=== PATIENT | male | born 1980 | race Caucasian/White ===

== ENCOUNTER → 2017-01-23 | Outpatient (CLI) | payer OTHER ==
--- NOTE | 2017-01-23 18:44 | CONS ---
CONSULTATION DATE OF SERVICE: 01/23/2017 36-year-old gentleman who has been evaluated in Sleep Center for possible obstructive sleep apnea-hypopnea syndrome. HISTORY OF PRESENT ILLNESS /SLEEP WAKE EVALUATION: SLEEP SCHEDULE: His sleep schedule on weekdays from around 10:30 to 11:00 p.m. to 5 or 6:00 a.m. and on weekend from of midnight until 8:00 a.m. FALLING ASLEEP: No problems with falling asleep, although he has television in bedroom. DURING SLEEP: He sleeps with his with loud snoring, witnessed episodes of stopped breathing during sleep and awakening from sleep with nocturia and gasping for air. Patient wakes up from sleep 3 times. DURING THE DAY/SLEEP WAKE SCHEDULE: In the morning, he wakes up tired, worries about his sleep, has irritability. [place] Sleepiness Scale increased to 9. No history of hypnagogic hallucinations, sleep paralysis or cataplexy. PAST MEDICAL HISTORY: Positive for hypertension, acid reflux. PAST SURGICAL HISTORY: Tonsillectomy. MEDICATIONS: 1. Ranitidine. 2. Cozaar. FAMILY HISTORY: Hypertension, heart problems, sleep apnea, snoring. SOCIAL HISTORY: Positive history of smoking for 15 pack years, quit 10 years ago. Alcohol consumption occasional. REVIEW OF SYSTEMS: Multiple awakenings from sleep, tiredness, sleepiness during the day. PHYSICAL EXAM: A 36-year-old gentleman without distress BP 140/95, HR 82, RR 16, height 6 feet and 3 inches, weight 245.2, BMI 30.6. Neck is 17-1/2 inches in circumference. Temperature 97.3. Oxygen saturation on room air 95%. Oropharynx extremely low position of soft palate. Nose restriction of nasal breathing bilaterally. Neck Supple, no JVD. Thyroid is not palpable. LUNGS Clear to percussion and to auscultation. Good air exchange. No wheezing or rhonchi. HEART S1, S2 regular. No murmurs, gallops, or rubs. ABDOMEN Soft and nontender. Bowel sounds are present. No organomegaly appreciated. EXTREMITIES No clubbing or cyanosis. CARDIAC CARE NURSE Awake, alert, and oriented X3. Cranial nerves 2 to 7 intact. There is no fasciculation or atrophy. noted. No focal deficits observed. IMPRESSION: 1. Snoring witnessed episodes of stopped breathing during sleep, extremely low position of soft palate. Restriction of nasal breathing, obstructive sleep apnea- hypopnea syndrome. 2. Mild obesity BMI 30.6. 3. Acid reflux. 4. Hypertension. 5. Status post tonsillectomy. 6. Significant restriction of nasal breathing bilaterally, possible nasal septum deviation. PLAN: 1. Polysomnography for evaluation of patient's breathing during sleep. 2. CPAP/BiPAP titration if sleep study confirms obstructive sleep apnea-hypopnea syndrome. 3. Preferable position during sleep on the side. 4. No driving if patient feels any sleepiness. Patient is aware of civil and criminal liability for unsafe driving. 5. I will see patient for follow up visit to explain results of testing and following plan. Thank you very much for referring this patient for consultation. Sincerely, Aidan Ponce MD, PhD, FAASM Diplomat of [employer] Special[employer] Board of [employer] Medicine Knotter of [facility] [place] MMODL / AUGUSTINEN: [id number] /
== END | disposition home or self-care (01) ==
LOC: SLEEP 16:43
PROVIDERS: ATTEND Internal Medicine
DX: G47.33 Obstructive sleep apnea (adult) (pediatric) (principal); K21.9 Gastro-esophageal reflux disease without esophagitis; I10 Essential (primary) hypertension; E66.9 Obesity, unspecified; Z68.30 Body mass index [BMI] 30.0-30.9, adult; Z90.89 Acquired absence of other organs
CPT/HCPCS: 99211

== ENCOUNTER → 2017-06-06 | Outpatient (CLI) | payer OTHER ==
--- NOTE | 2017-06-06 16:23 | PN ---
PROGRESS NOTE DATE OF SURGERY: 06/06/2017 This patient is a 37-year-old gentleman who has has been followed in the sleep center for treatment of severe obstructive sleep apnea-hypopnea syndrome. Recently patient had a polysomnogram and CPAP titration, and I discussed results of the sleep studies with the patient in detail. He was started on treatment with auto PAP with a range of pressure between 5 and 20 cm of water. Patient demonstrated very good compliance, usage for more than 4 hours 28 out of 30 nights, average usage 6.2 hours. Average pressure in the machine is 18 cm of water. Leak is 24 L/minute, which is borderline. Apnea-hypopnea index for the last night is 8.0, for the last month in the range of 13. Central apneas only 2.0. The patient thinks that he does not snore with the machine. He feels better while he is using machine with relationship to his sleep and he feels better during the day. [place] Sleepiness Scale is 3. MEDICATIONS: 1. Ranitidine. 2. Cozaar. PHYSICAL EXAMINATION: Patient in no distress. BP 132/73, HR 88, RR 16, weight 239, temperature 97.5, oxygen saturation at room air 95%. HEENT: PERRLA, EOMI. Evaluation of oropharynx showed tongue protrudes midline; moderately to extremely low position of soft palate. NECK: Supple. No JVD. Thyroid is not palpable. LUNGS: Clear to percussion and to auscultation. Good air exchange. No wheezing or rhonchi. HEART: S1, S2 regular. No murmurs, gallops or rubs. ABDOMEN: Obese. Soft and nontender. Bowel sounds are present. No organomegaly appreciated. EXTREMITIES : No clubbing or cyanosis. LIQUEFACTION AND REGASIFICATION HELPER: Awake, alert, and oriented X3. Cranial nerves 2 to 7 intact. There is no fasciculation or atrophy. noted. No focal deficits observed. IMPRESSION: 1. Severe obstructive sleep apnea-hypopnea syndrome; apnea-hypopnea index 66.8 with oxygen desaturation to 65.6%, improved on CPAP with average pressure of 18 cm of water. Patient demonstrated great compliance with treatment, benefitting from treatment. 2. Hypertension. 3. Acid reflux. 4. Restriction of nasal breathing. PLAN: 1. Continue treatment with CPAP every night. 2. Watching and losing weight. 3. Sleep hygiene with regular time in bed for at least 8 hours. 4. No driving if feeling any sleepiness. 5. Follow-up visit in several months. If patient continues to have significant respiratory abnormalities, we may consider switching him to a BiPAP machine. Thank you very much for allowing me to participate in the management of your patient. Sincerely, Aidan Ponce MD, PhD, FAASM Diplomat of [employer] Board [employer] Specialties [employer] Board of Internal Medicine [employer] [facility] [place] MMODL / AUGUSTINEN: [id number] /
== END | disposition home or self-care (01) ==
LOC: SLEEP 14:12
PROVIDERS: ATTEND Internal Medicine
DX: G47.33 Obstructive sleep apnea (adult) (pediatric) (principal); I10 Essential (primary) hypertension; K21.9 Gastro-esophageal reflux disease without esophagitis; Z99.89 Dependence on other enabling machines and devices; Z79.899 Other long term (current) drug therapy

== ENCOUNTER → 2017-09-19 | Outpatient (CLI) | payer OTHER ==
--- NOTE | 2017-09-19 16:35 | PN ---
PROGRESS NOTE DATE OF SERVICE: 09/19/2017 This is a 37-year-old gentleman who has been followed in the sleep center for treatment of obstructive sleep apnea-hypopnea syndrome. Patient continues to use his CPAP equipment every night. He sleeps better with the machine and feels better during the day. [place] Sleepiness Scale today is 4. I checked the patient's CPAP unit. It is on automatic regimen. Range of the pressure is from 5 to 20. Most of the time pressure is 18.5. Significant leaks have been documented at about 89 L/minute. Apnea-hypopnea index is in the range of 14. Usage for the last 6 months is 154 out of 176 nights for more than 4 hours; average 5.7 hours, which is perfect compliance. MEDICATIONS: 1. Ranitidine. 2. Cozaar. PHYSICAL EXAMINATION: GENERAL A pleasant gentleman without distress. VITAL SIGNS: BP 115/74, HR 68, RR 16, height 6 feet 3 inches, weight 231, BMI 28.8. Patient lost 8 pounds since previous visit. Temperature 97.4, oxygen saturation at room air 97%. HEENT: PERRLA, EOMI. Evaluation of oropharynx showed tongue protrudes midline; moderately low position of soft palate. Significant restriction of nasal breathing. NECK: Supple. No JVD. Thyroid is not palpable. LUNGS: Clear to percussion and to auscultation. Good air exchange. No wheezing or rhonchi. HEART: S1, S2 regular. No murmurs, gallops or rubs. ABDOMEN: Soft and nontender. Bowel sounds are present. No organomegaly appreciated. EXTREMITIES : No clubbing or cyanosis. COMPASS OPERATOR: Awake, alert, and oriented X3. Cranial nerves 2 to 7 intact. There is no fasciculation or atrophy. noted. No focal deficits observed. IMPRESSION: 1. Severe obstructive sleep apnea-hypopnea syndrome; apnea-hypopnea index 66.8 with oxygen desaturation to 65.6%, improved on CPAP. The patient demonstrated practically 100% compliance with treatment, benefitting from treatment. 2. Hypertension. 3. Acid reflux. 4. Restriction of nasal breathing. PLAN: 1. We tried to readjust patient's mask, and we explained to the patient how to put the mask on the face to be sure that there is no leak. At present he is using a full- face mask because there is a problem with breathing through his nose. 2. Continue to use CPAP equipment every night. 3. Watching weight. 4. Sleep hygiene with regular time in bed for at least 8 hours. 5. Prescription for all necessary CPAP supplies. Thank you very much for allowing me to participate in the management of your patient. Sincerely, Aidan Ponce MD, PhD, FAASM Diplomat of [employer] Specialties [employer] Board of Internal Medicine Authorizer of [facility] [place] MMODL / IJN: [id number] /
== END | disposition home or self-care (01) ==
LOC: SLEEP 14:36
PROVIDERS: ATTEND Internal Medicine
DX: G47.33 Obstructive sleep apnea (adult) (pediatric) (principal); I10 Essential (primary) hypertension; K21.9 Gastro-esophageal reflux disease without esophagitis; R06.89 Other abnormalities of breathing; Z79.899 Other long term (current) drug therapy; Z99.89 Dependence on other enabling machines and devices

== ENCOUNTER → 2018-10-09 | Outpatient (CLI) | payer OTHER ==
--- NOTE | 2018-10-09 11:25 | SFUN ---
SLEEP CENTER FOLLOW UP NOTE DATE OF SERVICE: 10/09/2018 A 38-year-old gentleman who has been followed in the Sleep Center for treatment of severe obstructive sleep apnea-hypopnea syndrome. Patient is using CPAP equipment every night for the whole night. Feels that there is a leak from the full-face mask. [place] Sleepiness Scale is 1, which is perfect. I checked his CPAP unit, range of the pressure 5-20, average pressure 14.3 cm of water. Leak 71 L/minute. Apnea-hypopnea index 10.9. MEDICATIONS: Cozaar, anitidine. PHYSICAL EXAM: Patient in no distress. BP 131/79, HR 80, RR 14, height 6 foot 3 inches, weight 245.4 pounds. Patient increased his weight 14 pounds comparing with the previous visit. Temperature 98.2, oxygen saturation at room air 95%. OROPHARYNX: Low position of soft palate, Mallampati 4. Neck Supple, no JVD. Thyroid is not palpable. LUNGS Clear to percussion and to auscultation. Good air exchange. No wheezing or rhonchi. HEART S1, S2 regular. No murmurs, gallops, or rubs. ABDOMEN Soft and nontender. Bowel sounds are present. No organomegaly appreciated. EXTREMITIES No clubbing or cyanosis. WAREHOUSE AND RECEIVING SUPERVISOR Awake, alert, and oriented X3. Cranial nerves 2 to 7 intact. There is no fasciculation or atrophy. noted. No focal deficits observed. IMPRESSION: 1. Severe obstructive sleep apnea-hypopnea syndrome; apnea-hypopnea index 66.8 with oxygen desaturation to 65.6%. Patient demonstrated 100% compliance with treatment. Usage is 29/30 nights for more than 4 hours, average 7 hours per night. Benefitting from treatment. Significant leak from the mask. 2. Hypertension. 3. Acid reflux. 4. Restriction of nasal breathing. PLAN: 1. We will try Dream Wear full-face mask. 2. Continue to use CPAP equipment every night for the whole night. 3. Losing weight. 4. Sleep hygiene with regular time in bed for at least 8 hours. 5. No driving if feeling sleepiness. Thank you very much for allowing me to participate in the management of your patient. Sincerely, Aidan Ponce MD, PhD, FAASM Diplomat of [place] [employer] Specialties [employer] [place] Board of Internal Medicine Cataloging Assistant of [facility] [place] . MMODL / IJN: [id number] /
== END | disposition home or self-care (01) ==
LOC: SLEEP 10:09
PROVIDERS: ATTEND Internal Medicine
DX: G47.33 Obstructive sleep apnea (adult) (pediatric) (principal); I10 Essential (primary) hypertension; K21.9 Gastro-esophageal reflux disease without esophagitis; J34.89 Other specified disorders of nose and nasal sinuses; Z99.89 Dependence on other enabling machines and devices; Z79.899 Other long term (current) drug therapy

== ENCOUNTER → 2020-03-16 | Outpatient (CLI) | payer OTHER ==
--- NOTE | 2020-03-17 02:31 | SFUN ---
SLEEP CENTER FOLLOW UP NOTE DATE OF SERVICE: 03/16/2020 This 39-year-old gentleman has been followed in Sleep Center for treatment of obstructive sleep apnea-hypopnea syndrome. The patient successfully continuing to use CPAP equipment every night for the whole night. Recently he gets different mask and he feels very comfortable with it. I checked CPAP unit. It is an automatic regimen range of the pressure 5-20, average pressure 10.8, usage is 26 out of 30 nights for more than 4 hours for the last month with the average usage 7.4 hours per night, which is good compliance. Leak is 18 L/minute which is borderline. Apnea-hypopnea index is only 1.4, which is perfect. [place] Sleepiness Scale today is 2 only. MEDICATIONS: Cozaar. Also patient presently taking medications for hyperlipidemia and GERD, but he does not remember exact names. PHYSICAL EXAMINATION: GENERAL: Patient in no distress. VITAL SIGNS: BP 141/97, HR 78, RR 15, height 6 feet 3-1/2 inches, weight 243 pounds BMI 29.9, temperature 97.6, oxygen saturation at room air 97%. HEENT: PERRLA, EOMI. Oropharynx extremely low position of soft palate. Mallampati 4. NECK: Supple, no JVD. Thyroid is not palpable. LUNGS: Clear to percussion and to auscultation. Good air exchange. No wheezing or rhonchi. HEART: S1, S2 regular. No murmurs, gallops, or rubs. ABDOMEN: Soft and nontender. Bowel sounds are present. No organomegaly appreciated. EXTREMITIES: No clubbing or cyanosis. SITE LEASING AGENT: Awake, alert, and oriented X3. Cranial nerves 2 to 7 intact. There is no fasciculation or atrophy. noted. No focal deficits observed. IMPRESSION: 1. Obstructive sleep apnea-hypopnea syndrome. Patient demonstrated great compliance with treatment, benefitting from treatment, normal respiration on CPAP. 2. Hypertension. 3. Acid reflux. 4. Restriction of nasal breathing. 5. Hyperlipidemia. PLAN: 1. Patient will continue to use PAP equipment every night for the whole night. 2. Sleep hygiene with regular time in bed for at least 7-1/2 to 8 hours. 3. Precautions related to driving. No driving if feeling sleepiness. 4. I will maintain all necessary prescription for PAP supplies including mask, tube, filters. 5. Watching weight. 6. No driving if feeling sleepiness. 7. Follow-up visit in 6 months or earlier if patient has any problems. Thank you very much for allowing me to participate in management of your patient. Sincerely, Aidan Ponce MD, PhD, FAASM Diplomat of [employer] Board of Medical Specialties Sudanese Board of Internal Medicine [employer] of [facility] [place] MMODL / AUGUSTINEN: [id number] /
== END | disposition home or self-care (01) ==
LOC: SLEEP 13:40
PROVIDERS: ATTEND Internal Medicine
DX: G47.33 Obstructive sleep apnea (adult) (pediatric) (principal); I10 Essential (primary) hypertension; K21.9 Gastro-esophageal reflux disease without esophagitis; E78.5 Hyperlipidemia, unspecified; Z99.89 Dependence on other enabling machines and devices; Z79.899 Other long term (current) drug therapy

== ENCOUNTER → 2021-04-27 | Outpatient (CLI) | payer BC, OTHER ==
--- NOTE | 2021-04-27 22:52 | SFUN ---
SLEEP CENTER FOLLOW UP NOTE DATE OF SERVICE: 04/27/2021 This 41-year-old gentleman has been followed in Sleep Center for treatment of obstructive sleep apnea-hypopnea syndrome. His previous visit was one year ago. The patient continues to use his CPAP equipment every night, getting his CPAP supplies on time. [place] Sleepiness Scale today is 2. I checked his CPAP unit. Range of the pressure is 5 to 20, average pressure 11.2. Usage is 30/30 nights for more than 4 hours, average 7.6 hours per night. Leak is 25 L/minute, which is borderline. Apnea-hypopnea index is 3.6, which is normal. MEDICATIONS: 1. Ibuprofen 800 mg as needed. 2. Gemfibrozil twice a day. 3. Atorvastatin 20 mg once a day. 4. Losartan once a day. 5. Omeprazole once a day. PHYSICAL EXAMINATION: GENERAL: Pleasant patient in no distress. VITAL SIGNS: BP 136/77, HR 82, RR 16, height 6 feet 4 inches, weight 252.0, body mass index 30.6, temperature 97.9, oxygen saturation at room air 97%. HEENT: PERRLA, EOMI, evaluation of oropharynx showed tongue protrudes midline. Extremely low position of soft palate; Mallampati IV. NECK: Supple, no JVD. Thyroid is not palpable. LUNGS: Clear to percussion and to auscultation. Good air exchange. No wheezing or rhonchi. HEART: S1, S2 regular. No murmurs, gallops, or rubs. ABDOMEN: Soft and nontender. Bowel sounds are present. No organomegaly appreciated. EXTREMITIES: No clubbing or cyanosis. CIRCUS PERFORMER: Awake, alert, and oriented X3. Cranial nerves 2 to 7 intact. There is no fasciculation or atrophy. noted. No focal deficits observed. IMPRESSION: 1. Obstructive sleep apnea-hypopnea syndrome. Patient demonstrated 100% compliance with treatment, benefitting from treatment. 2. Hypertension. 3. Acid reflux. 4. Restriction of nasal breathing. 5. Hyperlipidemia. PLAN: 1. Patient will continue to use PAP equipment every night for the whole night. 2. Sleep hygiene with regular time in bed for at least 7-1/2 to 8 hours. 3. Precautions related to driving. No driving if feeling sleepiness. 4. I will maintain all necessary prescription for PAP supplies including mask, tube, filters. 5. Watching weight. 6. Follow-up visit in 6 months or earlier if patient has any problems. Thank you very much for allowing me to participate in the management of your patient. Sincerely, Aidan Ponce MD, PhD, FAASM Diplomat of [employer] Board of Medical Specialties Sleep Medicine Board of [place] Board of Internal Medicine Criminal Attorney of [facility] [place] MMODL / AUGUSTINEN: [id number] /
== END ==
LOC: SLEEP 14:35
PROVIDERS: ATTEND Internal Medicine
DX: G47.33 Obstructive sleep apnea (adult) (pediatric) (principal); I10 Essential (primary) hypertension; K21.9 Gastro-esophageal reflux disease without esophagitis; E78.5 Hyperlipidemia, unspecified; R09.81 Nasal congestion; Z99.89 Dependence on other enabling machines and devices; Z79.899 Other long term (current) drug therapy

== ENCOUNTER → 2021-11-01 | Outpatient (CLI) | payer BC, OTHER ==
--- NOTE | 2021-11-01 16:27 | P.PN ---
Subjective DATE: 11/01/2021 FOLLOW UP VISIT. Patient with obstructive sleep apnea hypopnea syndrome return to sleep center for follow-up visit. Information from previous visit have been reviewed. Patient is using PAP equipment every night for the whole night, getting PAP supplies in time. The patient does not have significant problems with the mask, PAP unit and humidification. [place] sleepiness scale is 1. I checked information from PAP unit. PAP unit pressure 5-20, average 11.3 cm H2O. Usage is 100 % for more then 4 hours, average 7.6 hours per night. Apnea Hypopnea Index is 5.8, which is borderline. MEDICATIONS:1. Losartan 2. Or omeprazole 3. Gemfibrozil 4. Atorvastatin 5. Ibuprofen as needed During physical exam: GENERAL: A pleasant patient without any distress. VITAL SIGNS: BP 146/83, HR 80, RR 16 , weight 253, height 6 foot 4 inches, body mass index 30.7, temperature 98.4, oxygen saturation at room air 96 % . HEENT: PERRLA, EOMI.low position of soft palate, Mallapati4 . NECK: Supple. No JVD. LUNGS: Clear to percussion and to auscultation. Good air exchange. No wheezing or rhonchi. HEART: S1, S2 regular. ABDOMEN: Soft and nontender.[] EXTREMITIES: No clubbing or cyanosis. SENIOR SQL DEVELOPER: Awake, alert, and oriented x3. No focal deficit. Impressions: 1. Obstructive sleep apnea-hypopnea syndrome. Patient demonstrated great compliance with treatment, benefiting from treatment. 2. Hypertension. 3. Acid reflux. 4. Hyperlipidemia. 5. Restriction of nasal breathing. 6. Mild obesity. Plan: 1. Continue using PAP equipment every night for the whole night. Prescription for almost 3 CPAP supplies. To replace collar for air filter, one leg is broken there. 2. To change air filter at least 1-2 times per month. 3. PAP unit should stay lower then position of the head. 4. Advised patient to remove all remaining water from humidifier canister daily and make it dry after each usage. Refill canister with fresh distilled water before each usage. 5. Sleep hygiene with regular time in bed for at least 8 hours. 6. Precautions related to driving. No driving if feel any sleepiness. 7. I will maintain prescription for PAP supplies including mask, tube, filters. 8. Follow up visit in 6 months or earlier if patient has any problems. 9. Watching weight. Thank you very much for allowing me to participate in the management of your patient. Aidan Ponce MD, PhD, FAASM. Diplomat of [place] [employer] [employer] Sleep Medicine, Sleep Medicine Board by [place] [employer] of Internal Medicine Signal System Testing Maintainer of [facility] [place]
== END ==
LOC: SLEEP 15:58
PROVIDERS: ATTEND Internal Medicine
DX: G47.33 Obstructive sleep apnea (adult) (pediatric) (principal); I10 Essential (primary) hypertension; K21.9 Gastro-esophageal reflux disease without esophagitis; E78.5 Hyperlipidemia, unspecified; E66.9 Obesity, unspecified; R06.5 Mouth breathing; Z79.899 Other long term (current) drug therapy; Z99.89 Dependence on other enabling machines and devices

== ENCOUNTER → 2022-05-09 | Outpatient (CLI) | payer BC, OTHER ==
--- NOTE | 2022-05-09 16:11 | P.PN ---
Subjective DATE: 05/09/2022 FOLLOW UP VISIT. Patient with obstructive sleep apnea hypopnea syndrome return to sleep center for follow-up visit. Information from previous visit have been reviewed. Patient is using PAP equipment every night for the whole night, getting PAP supplies in time. The patient does not have significant problems with the mask, PAP unit and humidification. [place] sleepiness scale is 2. I checked information from PAP unit. PAP unit pressure 5-20, average 13.4 cm H2O. Usage is 100 % for more then 4 hours, average 8 hours per night. Leak is 27.6 l/m, which is in acceptable range. Apnea Hypopnea Index is 7.3, which is slightly increased. Patient sleeps well. MEDICATIONS:1. Omeprazole 40 mg once a day 2. Losartan 50 mg once a day 3. Atorvastatin 20 mg once a day 4. Gemfibrozil 600 mg twice a day During physical exam: GENERAL: A pleasant patient without any distress. VITAL SIGNS: BP 158/93, HR 84, RR 16 , weight 275.4, body mass and is 33.9, temperature 98.1, oxygen saturation at room air 97 % . HEENT: PERRLA, EOMI.low position of soft palate, Mallapati 4 . NECK: Supple. No JVD. LUNGS: Clear to percussion and to auscultation. Good air exchange. No wheezing or rhonchi. HEART: S1, S2 regular. ABDOMEN: Soft and nontender.[] EXTREMITIES: No clubbing or cyanosis. STOCKROOM SELECTOR: Awake, alert, and oriented x3. No focal deficit. Impressions: 1. Obstructive sleep apnea-hypopnea syndrome. Patient demonstrated great compliance with treatment, benefiting from treatment. 2. Mild obesity body mass index 33.7, patient increased his weight on 22 pounds comparing with previous visit.. 3. Hypertension. 4. Hyperlipidemia. 5. Acid reflux. 6. Restriction of nasal breathing. Plan: 1. Continue using PAP equipment every night for the whole night. 2. To change air filter at least 1-2 times per month. 3. PAP unit should stay lower then position of the head. 4. Advised patient to remove all remaining water from humidifier canister daily and make it dry after each usage. Refill canister with fresh distilled water before each usage. 5. Sleep hygiene with regular time in bed for at least 8 hours. 6. Precautions related to driving. No driving if feel any sleepiness. 7. I will maintain prescription for PAP supplies including mask, tube, filters. 8. Watching and losing weight. 9. Follow up visit in 6 months or earlier if patient has any problems. Thank you very much for allowing me to participate in the management of your patient. Aidan Ponce MD, PhD, FAASM. Diplomat of [employer] Board of Sleep Medicine, Sleep Medicine Board by [employer] Board of Internal Medicine [place] Setter of [facility] [place]
== END ==
LOC: SLEEP 15:51
PROVIDERS: ATTEND Internal Medicine
DX: G47.33 Obstructive sleep apnea (adult) (pediatric) (principal); E66.9 Obesity, unspecified; Z68.33 Body mass index [BMI] 33.0-33.9, adult; I10 Essential (primary) hypertension; E78.5 Hyperlipidemia, unspecified; K21.9 Gastro-esophageal reflux disease without esophagitis; R04.0 Epistaxis; Z99.89 Dependence on other enabling machines and devices
CPT/HCPCS: 99212

== ENCOUNTER → 2022-11-07 | Outpatient (CLI) | payer BC, OTHER ==
--- NOTE | 2022-11-07 17:35 | P.PN ---
Subjective DATE: 11/07/2022 FOLLOW UP VISIT. Patient with obstructive sleep apnea hypopnea syndrome return to sleep center for follow-up visit. Information from previous visit have been reviewed. Patient is using PAP equipment every night for the whole night, getting PAP supplies in time. The patient does not have significant problems with the mask, PAP unit and humidification. [place] sleepiness scale is 1, which is perfect. I checked information from PAP unit. PAP unit pressure 5-20, average 9.8 cm H2O. Usage is 97 % for more then 4 hours, average 7 three quarters hours per night. Leak is 20.5 l/m, which is in acceptable range. Apnea Hypopnea Index is 4.4, which is normal. MEDICATIONS:1. Losartan 50 mg once a day 2. Atorvastatin 20 mg once a day 3. Omeprazole 40 mg once a day 4. ID packs 37.5 mg once a day 5. Prednisone 6. Gemfibrozil 600 mg twice a day During physical exam: GENERAL: A pleasant patient without any distress. VITAL SIGNS: BP 145/89, HR 81, RR 16 , weight 234.8, temperature 98.2, oxygen saturation at room air 98 % . HEENT: PERRLA, EOMI.low position of soft palate, Mallapati 4 . NECK: Supple. No JVD. LUNGS: Clear to percussion and to auscultation. Good air exchange. No wheezing or rhonchi. HEART: S1, S2 regular. ABDOMEN: Soft and nontender.[] EXTREMITIES: No clubbing or cyanosis. PRODUCT SAFETY CONSULTANT: Awake, alert, and oriented x3. No focal deficit. Impressions: 1. Obstructive sleep apnea-hypopnea syndrome. Patient demonstrated great compliance with treatment, benefiting from treatment. 2. History of mild obesity, patient lost 40 pounds since previous visit. 3. Hypertension. 4. Acid reflux. 5. Hyperlipidemia. 6. Restriction of nasal breathing. Plan: 1. Continue using PAP equipment every night for the whole night. 2. To change air filter at least 1-2 times per month. 3. PAP unit should stay lower then position of the head. 4. Advised patient to remove all remaining water from humidifier canister daily and make it dry after each usage. Refill canister with fresh distilled water before each usage. 5. Sleep hygiene with regular time in bed for at least 8 hours. 6. Precautions related to driving. No driving if feel any sleepiness. 7. I will maintain prescription for PAP supplies including mask, tube, filters. 8. Follow up visit in 6 months or earlier if patient has any problems. 9. Watching weight. Thank you very much for allowing me to participate in the management of your patient. Aidan Ponce MD, PhD, FAASM. Diplomat of [place] [employer], Sleep Medicine Board by [employer] Case Management Assistant of [facility] [place]
== END ==
LOC: 3 N SLEEP 16:29
PROVIDERS: ATTEND Internal Medicine
DX: G47.33 Obstructive sleep apnea (adult) (pediatric) (principal); E66.9 Obesity, unspecified; I10 Essential (primary) hypertension; E78.5 Hyperlipidemia, unspecified; K21.9 Gastro-esophageal reflux disease without esophagitis; Z99.89 Dependence on other enabling machines and devices; Z79.899 Other long term (current) drug therapy
CPT/HCPCS: 99212

== ENCOUNTER → 2023-05-16 | Outpatient (CLI) | payer BC, OTHER ==
--- NOTE | 2023-05-16 16:22 | P.PN ---
Subjective DATE: 05/16/2023 FOLLOW UP VISIT. Patient with obstructive sleep apnea hypopnea syndrome return to sleep center for follow-up visit. Information from previous visit have been reviewed. Patient is using PAP equipment every night for the whole night, getting PAP supplies in time. Patient reported that sometimes his CPAP unit stopped working during the night. [place] sleepiness scale is 1, which is perfect. I checked information from PAP unit. PAP unit pressure 5-20, average 9 cm H2O. Usage is 100 % for more then 4 hours, average 7.1 hours per night. Leak is increased to 37 l/m. Apnea Hypopnea Index is 2.5, which is normal. MEDICATIONS:1. Losartan 50 mg once a day 2. Lipitor 20 mg once a day 3. Prevacid 4. Gemfibrozil 600 mg twice a day During physical exam: GENERAL: A pleasant patient without any distress. VITAL SIGNS: BP 150/97, HR 82, RR 16 , weight 247, temperature 98.0, oxygen saturation at room air 97 % . HEENT: PERRLA, EOMI.low position of soft palate, Mallapati 4 . NECK: Supple. No JVD. LUNGS: Clear to percussion and to auscultation. Good air exchange. No wheezing or rhonchi. HEART: S1, S2 regular. ABDOMEN: Soft and nontender.[] EXTREMITIES: No clubbing or cyanosis. SALES ASSOC: Awake, alert, and oriented x3. No focal deficit. Impressions: 1. Obstructive sleep apnea-hypopnea syndrome. Patient demonstrated great compliance with treatment, benefiting from treatment. CPAP unit is old, stops working during the night according to patient. 2. Hypertension. 3. Acid reflux. 4. Hyperlipidemia. 5. Restriction of nasal breathing. Plan: 1. Continue using PAP equipment every night for the whole night. Prescription to replace AutoPAP unit. 2. To change air filter at least 1-2 times per month. 3. PAP unit should stay lower then position of the head. 4. Advised patient to remove all remaining water from humidifier canister daily and make it dry after each usage. Refill canister with fresh distilled water before each usage. 5. Sleep hygiene with regular time in bed for at least 8 hours. 6. Precautions related to driving. No driving if feel any sleepiness. 7. I will maintain prescription for PAP supplies including mask, tube, filters. 8. Watching weight. 9. Follow up visit in 1 months after patient will get new CPAP unit. Thank you very much for allowing me to participate in the management of your patient. Aidan Ponce MD, PhD, FAASM. Diplomat of [place] [employer], Sleep Medicine Board by [place] Deputy County Counsel of [facility] [place]
== END ==
LOC: 3 N SLEEP 15:45
PROVIDERS: ATTEND Internal Medicine
DX: G47.33 Obstructive sleep apnea (adult) (pediatric) (principal); E78.5 Hyperlipidemia, unspecified; I10 Essential (primary) hypertension; K21.9 Gastro-esophageal reflux disease without esophagitis; Z79.899 Other long term (current) drug therapy; Z99.89 Dependence on other enabling machines and devices
CPT/HCPCS: 99212

== ENCOUNTER → 2023-05-31 | Outpatient (CLI) | payer BC, OTHER ==
[2023-05-31 16:03] LABS: BUN/Creat Ratio 23.67 Ratio (12.00-20.00); Blood Urea Nitrogen 21.3 mg/dL (9.0-27.0); Chloride 101 mmol/L (96-109); Chol/HDL Ratio 2.71 Ratio; Glucose 93 mg/dL (70-110); LDL Cholesterol,Calculated 84.8 mg/dL (0.0-131.0); Potassium 4.4 mmol/L (3.5-5.5); Sodium 137 mmol/L (135-145); VLDL Calculation 18.06 mg/dL (5.00-40.00)
[2023-05-31 16:04] LABS: ALT 27 U/L (10-49); AST 30 U/L (14-35); Albumin 4.8 g/dL (3.8-4.9); Albumin/Globulin Ratio 1.71 Ratio (1.60-3.17); Alkaline Phosphatase 58 U/L (41-126); Carbon Dioxide 25.7 mmol/L (21.6-31.8); Globulin 2.8 g/dL (1.6-3.3); Total Bilirubin 0.9 mg/dL (0.3-1.2); Total Protein 7.6 g/dL (6.2-8.2)
--- NOTE | 2023-05-31 18:14 | US ---
EXAMINATION TYPE: US renals and bladder DATE OF EXAM: 05/31/2023 COMPARISON: NONE CLINICAL INDICATION: Male, 43 years old with history of N28.1 RENAL CYST; Patient states they saw a c yst on the kidney in an outside MRI. EXAM MEASUREMENTS: Right Kidney: 13.5 x 5.9 x 5.8 cm Left Kidney: 11.7 x 6.5 x 7.1 cm Right Kidney: Enlarged. *Limited due to rib shadow. No hydronephrosis or masses seen Left Kidney: Anechoic area seen at mid: 1.8 x 1.7 x 1.7 cm. Bladder: Appears wnl Bilateral Jets seen: Yes IMPRESSION: 1. A benign 1.8 cm mid pole cyst left kidney. 2. No hydronephrosis.
== END | disposition home or self-care (01) ==
LOC: RADUSWWP 09:19
PROVIDERS: ATTEND Pediatrics
DX: N28.1 Cyst of kidney, acquired (principal); E78.5 Hyperlipidemia, unspecified; R73.01 Impaired fasting glucose
CPT/HCPCS: 76770; 80053; 80061; 83036

== ENCOUNTER → 2023-12-26 | Outpatient (CLI) | payer BC ==
[2023-12-26 16:39] VITALS: BP 140/91; PULSE 76; RESP 16; TEMP 98.6
--- NOTE | 2023-12-26 17:00 | P.PROGSL ---
Subjective DATE: 12/26/2023 FOLLOW UP VISIT. Patient with obstructive sleep apnea hypopnea syndrome return to sleep center for follow-up visit. Information from previous visit have been reviewed. This is first visit after patient received new CPAP unit. Patient is using PAP equipment every night for the whole night, getting PAP supplies in time. The patient does not have significant problems with the mask, PAP unit and humidification. [place] sleepiness scale is 1, which is perfect. I checked information from PAP unit. PAP unit pressure 5-20, average 11.5 cm H2O. Usage is 100% for more then 4 hours, average 7.5 hours per night. Leak is increased to 32.5 l/m. Apnea Hypopnea Index is slightly increased to 6.1. MEDICATIONS have been reviewed, please see below. During physical exam: GENERAL: A pleasant patient without any distress. VITAL SIGNS: Please see below, weight is 270.6 lbs. HEENT: PERRLA, EOMI.low position of soft palate, Mallapati 4 . NECK: Supple. No JVD. LUNGS: Clear to percussion and to auscultation. Good air exchange. No wheezing or rhonchi. HEART: S1, S2 regular. ABDOMEN: Soft and nontender. Slightly obese EXTREMITIES: No clubbing or cyanosis. FIELD REIMBURSEMENT MANAGER: Awake, alert, and oriented x3. No focal deficit. Impressions: 1. Obstructive sleep apnea-hypopnea syndrome. Patient demonstrated great compliance with treatment, benefiting from treatment. 2. Hypertension. 3. Acid reflux. 4. Hyperlipidemia. 5. Obesity, patient increased his weight on 23 pounds comparing with the previous visit. Plan: 1. Continue using PAP equipment every night for the whole night. 2. Sleep hygiene with regular time in bed for at least 7.5-8 hours 3. PAP unit should stay lower then position of the head. 4. Advised patient to remove all remaining water from humidifier canister daily and make it dry after each usage. Refill canister with fresh distilled water before each usage. 5. Watching and losing weight. 6. Precautions related to driving. No driving if feel any sleepiness. 7. I will maintain prescription for PAP supplies including mask, tube, filters. 8. Follow up visit in 6 months or earlier if patient has any problems. Thank you very much for allowing me to participate in the management of your patient. Aidan Ponce MD, PhD, FAASM. Diplomat of [place] [employer], Sleep Medicine Board by [employer] Network/Telecom Engineer of [facility] [place] Objective - Vital Signs Vital Signs: Vital Signs Temp 98.6 F 12/26/23 16:38 Pulse 76 12/26/23 16:38 Resp 16 12/26/23 16:38 BP 140/91 12/26/23 16:38 Pulse Ox 96 12/26/23 16:38 FiO2 Intake & Output 12/25/23 12/26/23 12/26/23 18:59 06:59 18:59 Weight 270 kg
== END ==
LOC: 3 N SLEEP 15:45
PROVIDERS: ATTEND Internal Medicine
CPT/HCPCS: 99212

== ENCOUNTER → 2024-09-02 | Outpatient (CLI) | payer BC ==
[2024-09-02 16:26] VITALS: BP 151/94; PULSE 90; RESP 16; TEMP 98.4
== END ==
LOC: 3 N SLEEP 16:07
PROVIDERS: ATTEND Internal Medicine
DX: Z53.9 Procedure and treatment not carried out, unspecified reason (principal)
CPT/HCPCS: 99212